=== PATIENT | male | born 1975 | race Two or more races ===

== ENCOUNTER 2022-11-03 06:08 | Inpatient (IN) | payer OTHER ==
[~2022-11-03] VITALS: Ht 167.6 cm; Wt 91.6 kg
--- NOTE | 2022-11-03 06:20 | NUR ---
PACIENTE REFIERE TENGO BEKAH FISTULA EN GLUTEO RAVI SERCA DEL ANO. [place] ES [facility]. TENGO IVANNA UN MES CON LA FISTULA.
--- NOTE | 2022-11-03 07:45 | NUR ---
PTE EVALUADO POR EL DR COLON QUIEN ORDENA EL [place]. MS Amber KERR ORIENTA SOBRE EL TX ORDENADO, LO CUAL REFIERE ENTENDER, REALIZA PRUEBAS DE LABORATORIO Y ADMINISTRA MEDICAMENTO NICKIE ORDEN MEDICA Y SIGUIENDO MEDIDAS ASEPTICAS. IAM X Y CT W IV CONTRAST NOTIFICADOS A PERSONAL DE TURNO. PENDIENTE CONSULTA CON DR Ainsley AMBROSE SE MANTIENE BAJO OBSERVACION.
--- NOTE | 2022-11-03 15:30 | NUR ---
SE RECIBE MASCULINO ALERTA Y ORIENTADO X3 DEL TURNO ANTERIOR CON ZENAIDA POSICION MAS BAJA Y BARANDAS ELEVADAS POR SEGURIDAD. R/L @ 125 ML/HR PATENTE. PENDIENTE CONSULTA CON DR DUFF LA CUAL YA FUE NOTIFICADA. SE MANTIENE EN OBSERVACION.
[2022-11-05] MEDS ORDERED: IRBESARTAN-HCT1 EACH (11:38)
[2022-11-07] MEDS ORDERED: INTESTINEX680 M1 PO (15:21)
[2022-11-07] MEDS ORDERED: AMOX1TAB5 PO (15:21)
[2022-11-07] MEDS ORDERED: ULTRACET PO (15:21)
== END 2022-11-07 22:31 | disposition home or self-care (01) | DRG 394 ==
LOC: ER 06:08 → SURH 17:03 → SEC-K 17:03 → SURH 18:11
PROVIDERS: ADMIT Surgery; ATTEND Surgery
PROC: BW21YZZ Computerized Tomography (CT Scan) of Abdomen and Pelvis using Other Contrast (ICD-10-PCS; principal; 2022-11-03)
PROC: 0J9B0ZZ Drainage of Perineum Subcutaneous Tissue and Fascia, Open Approach (ICD-10-PCS; 2022-11-05)
PROC: 3E0T3BZ Introduction of Anesthetic Agent into Peripheral Nerves and Plexi, Percutaneous Approach (ICD-10-PCS; 2022-11-05)
DX: K61.39 Other ischiorectal abscess (principal); K57.32 Diverticulitis of large intestine without perforation or abscess without bleeding; I10 Essential (primary) hypertension; Z20.822 Contact with and (suspected) exposure to COVID-19